=== PATIENT | male | born 1950 | race Caucasian/White ===

== ENCOUNTER → 2016-04-10 | Outpatient (CLI) | payer MEDICARE, BC ==
[2016-04-10 12:30] LABS: ABSOLUTE BASOPHILS # (AUTO) 0.1 10^3/uL (0.0-0.2); ABSOLUTE EOSINOPHILS # (AUTO) 0.3 10^3/uL (0.0-0.6); ABSOLUTE LYMPHOCYTES (AUTO) 1.1 10^3/uL (0.5-4.7); ABSOLUTE MONOCYTES (AUTO) 0.5 10^3/uL (0.1-1.4); ABSOLUTE NEUT (AUTO) 4.6 10^3/uL (1.7-8.2); BASOPHILS % (AUTO) 0.9 % (0-2); EOSINOPHILS % (AUTO) 4.9 % (0-6); HEMATOCRIT 36.4 % (37.9-51.0); HEMOGLOBIN 12.2 g/dL (13.5-17.0); HGB HCT DIFFERENCE 0.2; MEAN CORPUSCULAR HEMOGLOBIN 31.4 pg (27.0-33.4); MEAN CORPUSCULAR HGB CONC 33.5 g/dL (32.0-36.0); MEAN CORPUSCULAR VOLUME 94 fl (80-97); RED BLOOD COUNT 3.89 10^6/uL (4.35-5.55); RED CELL DISTRIBUTION WIDTH 12.9 % (11.5-14.0); SEGMENTED NEUTROPHILS % (AUTO) 69.2 % (42-78); WHITE BLOOD COUNT 6.6 10^3/uL (4.0-10.5)
[2016-04-10 12:53] LABS: ALANINE AMINOTRANSFERASE 33 U/L (21-72); ALKALINE PHOSPHATASE 146 U/L (38-126); ANION GAP 9 (5-19); ASPARTATE AMINO TRANSFERASE 17 U/L (17-59); BILIRUBIN,TOTAL 0.4 mg/dL (0.2-1.3); BLOOD UREA NITROGEN 50 mg/dL (7-20); CALCIUM 8.9 mg/dL (8.4-10.2); CARBON DIOXIDE 22 mmol/L (22-30); CHLORIDE 107 mmol/L (98-107); CHOLESTEROL 198.62 mg/dL (0-200); CREATININE RESULT 3.05 mg/dL (0.52-1.25); Direct HDL 32 mg/dL (>40); GLUCOSE 206 mg/dL (75-110); PHOSPHORUS 4.2 mg/dL (2.5-4.5); POTASSIUM 5.2 mmol/L (3.6-5.0); TOTAL PROTEIN 5.8 g/dL (6.3-8.2); TRIGLYCERIDES 412 mg/dL (<150)
[2016-04-10 13:06] LABS: DIRECT LDL 86 mg/dL (<100)
[2016-04-10 13:08] LABS: ERYTHROCYTE SEDIMENTATION RATE 33 mm/hr (0-20)
== END ==
LOC: OD 10:22
DX: E11.59 Type 2 diabetes mellitus with other circulatory complications (principal); Z79.4 Long term (current) use of insulin; I10 Essential (primary) hypertension; E78.2 Mixed hyperlipidemia; E21.3 Hyperparathyroidism, unspecified; Z12.5 Encounter for screening for malignant neoplasm of prostate; Z79.899 Other long term (current) drug therapy
CPT/HCPCS: 36415; 84100; 84443; 85025; 85652; 80053; 83036; 80061; G0103

== ENCOUNTER → 2016-04-26 | Outpatient (CLI) | payer MEDICARE, BC | LOC: RAD 11:47 | DX: I50.9 Heart failure, unspecified (principal); N50.89 Other specified disorders of the male genital organs; N43.3 Hydrocele, unspecified | CPT/HCPCS: 71020; 76870; 93976 ==

== ENCOUNTER → 2016-05-08 | Outpatient (CLI) | payer MEDICARE, BC | LOC: OD 10:45 | DX: D64.9 Anemia, unspecified (principal); E78.2 Mixed hyperlipidemia | CPT/HCPCS: 36415; 82607; 82728; 82746; 82977; 83540; 83550; 85045 ==

== ENCOUNTER → 2016-06-21 | Outpatient (CLI) | payer MEDICARE, BC ==
[2016-06-21 11:35] LABS: ABSOLUTE BASOPHILS # (AUTO) 0.1 10^3/uL (0.0-0.2); ABSOLUTE EOSINOPHILS # (AUTO) 0.3 10^3/uL (0.0-0.6); ABSOLUTE MONOCYTES (AUTO) 0.6 10^3/uL (0.1-1.4); ABSOLUTE NEUT (AUTO) 6.7 10^3/uL (1.7-8.2); BASOPHILS % (AUTO) 0.6 % (0-2); EOSINOPHILS % (AUTO) 3.9 % (0-6); HEMATOCRIT 36.9 % (37.9-51.0); HEMOGLOBIN 12.4 g/dL (13.5-17.0); HGB HCT DIFFERENCE 0.3; LYMPHOCYTES % (AUTO) 11.4 % (13-45); MEAN CORPUSCULAR HEMOGLOBIN 31.1 pg (27.0-33.4); MEAN CORPUSCULAR HGB CONC 33.6 g/dL (32.0-36.0); MEAN CORPUSCULAR VOLUME 93 fl (80-97); MONOCYTES % (AUTO) 7.3 % (3-13); RED BLOOD COUNT 3.98 10^6/uL (4.35-5.55); RED CELL DISTRIBUTION WIDTH 13.1 % (11.5-14.0); SEGMENTED NEUTROPHILS % (AUTO) 76.8 % (42-78); WHITE BLOOD COUNT 8.7 10^3/uL (4.0-10.5)
[2016-06-21 11:46] LABS: APPEARANCE,URINE CLEAR; BILIRUBIN,URINE NEGATIVE (NEGATIVE); GLUCOSE, URINE >=500 mg/dL (NEGATIVE); KETONES,URINE NEGATIVE (NEGATIVE); LEUKOCYTE ESTERASE,URINE NEGATIVE (NEGATIVE); NITRITE,URINE NEGATIVE (NEGATIVE); PROTEIN,URINE >=500 mg/dL (NEGATIVE); UROBILINOGEN,URINE NEGATIVE mg/dL (<2.0)
[2016-06-21 12:19] LABS: ALANINE AMINOTRANSFERASE 27 U/L (21-72); ALBUMIN 3.7 g/dL (3.5-5.0); ALKALINE PHOSPHATASE 124 U/L (38-126); ANION GAP 13 (5-19); ASPARTATE AMINO TRANSFERASE 26 U/L (17-59); BILIRUBIN,DIRECT 0.4 mg/dL (0.0-0.4); BILIRUBIN,TOTAL 0.5 mg/dL (0.2-1.3); BLOOD UREA NITROGEN 86 mg/dL (7-20); CALCIUM 8.9 mg/dL (8.4-10.2); CARBON DIOXIDE 20 mmol/L (22-30); CHLORIDE 108 mmol/L (98-107); CREATININE RESULT 4.18 mg/dL (0.52-1.25); GLUCOSE 194 mg/dL (75-110); SODIUM 140.6 mmol/L (137-145); TOTAL PROTEIN 6.1 g/dL (6.3-8.2)
[2016-06-21 13:02] LABS: URINE CREATININE 70.2 mg/dL (22-328)
[2016-06-21 13:11] LABS: URINE PROTEIN 588.9 mg/dL (<12)
== END ==
LOC: OD 09:50
PROVIDERS: ATTEND Internal Medicine Nephrology
DX: I12.9 Hypertensive chronic kidney disease with stage 1 through stage 4 chronic kidney disease, or unspecified chronic kidney disease (principal); N18.4 Chronic kidney disease, stage 4 (severe); E87.5 Hyperkalemia; E11.9 Type 2 diabetes mellitus without complications
CPT/HCPCS: 36415; 80053; 81001; 82570; 83735; 83970; 84100; 84156; 84443; 85025

== ENCOUNTER → 2016-06-27 | Outpatient (CLI) | payer MEDICARE, BC ==
[2016-06-27 11:30] LABS: CHOLESTEROL 216.83 mg/dL (0-200); Direct HDL 41 mg/dL (>40); TRIGLYCERIDES 229 mg/dL (<150)
[2016-06-27 11:41] LABS: DIRECT LDL 100 mg/dL (<100)
[2016-06-27 11:46] LABS: VLDL CHOLESTEROL 45.8 mg/dL (10-31)
== END ==
LOC: OD 09:59
PROVIDERS: ATTEND Internal Medicine
DX: E55.9 Vitamin D deficiency, unspecified (principal); R73.01 Impaired fasting glucose; E78.2 Mixed hyperlipidemia
CPT/HCPCS: 36415; 80061; 83036

== ENCOUNTER → 2016-07-16 | Outpatient (CLI) | payer MEDICARE, BC ==
[2016-07-16 10:59] LABS: APPEARANCE,URINE SLIGHTLY-CLOUDY; BILIRUBIN,URINE NEGATIVE (NEGATIVE); GLUCOSE, URINE >=500 mg/dL (NEGATIVE); KETONES,URINE NEGATIVE (NEGATIVE); LEUKOCYTE ESTERASE,URINE NEGATIVE (NEGATIVE); NITRITE,URINE NEGATIVE (NEGATIVE); PROTEIN,URINE >=500 mg/dL (NEGATIVE); URINE SPECIFIC GRAVITY 1.009; UROBILINOGEN,URINE NEGATIVE mg/dL (<2.0)
[2016-07-16 11:06] LABS: HEMATOCRIT 36.5 % (37.9-51.0); HEMOGLOBIN 12.2 g/dL (13.5-17.0); HGB HCT DIFFERENCE 0.1; MEAN CORPUSCULAR HEMOGLOBIN 30.5 pg (27.0-33.4); MEAN CORPUSCULAR HGB CONC 33.3 g/dL (32.0-36.0); MEAN CORPUSCULAR VOLUME 92 fl (80-97); RED BLOOD COUNT 3.98 10^6/uL (4.35-5.55); RED CELL DISTRIBUTION WIDTH 13.1 % (11.5-14.0); WHITE BLOOD COUNT 6.3 10^3/uL (4.0-10.5)
[2016-07-16 11:27] LABS: ANION GAP 9 (5-19); BLOOD UREA NITROGEN 99 mg/dL (7-20); CARBON DIOXIDE 21 mmol/L (22-30); CHLORIDE 107 mmol/L (98-107); CREATININE RESULT 5.04 mg/dL (0.52-1.25); GLUCOSE 181 mg/dL (75-110); PHOSPHORUS 6.4 mg/dL (2.5-4.5); POTASSIUM 4.7 mmol/L (3.6-5.0); SODIUM 137.1 mmol/L (137-145)
[2016-07-16 11:37] LABS: URINE CREATININE 80.1 mg/dL (22-328)
[2016-07-16 11:44] LABS: URINE PROTEIN 544.6 mg/dL (<12)
== END ==
LOC: OD 10:04
PROVIDERS: ATTEND Physician Assistant Medical
DX: E11.22 Type 2 diabetes mellitus with diabetic chronic kidney disease (principal); I12.9 Hypertensive chronic kidney disease with stage 1 through stage 4 chronic kidney disease, or unspecified chronic kidney disease; N18.4 Chronic kidney disease, stage 4 (severe); R60.9 Edema, unspecified
CPT/HCPCS: 36415; 80048; 81001; 82570; 83970; 84100; 84156; 85027

== ENCOUNTER → 2016-08-13 | Outpatient (CLI) | payer MEDICARE, BC ==
[2016-08-13 13:06] LABS: HEMATOCRIT 33.2 % (37.9-51.0); HGB HCT DIFFERENCE -0.2; MEAN CORPUSCULAR HEMOGLOBIN 31.2 pg (27.0-33.4); MEAN CORPUSCULAR HGB CONC 33.1 g/dL (32.0-36.0); MEAN CORPUSCULAR VOLUME 94 fl (80-97); RED BLOOD COUNT 3.53 10^6/uL (4.35-5.55); RED CELL DISTRIBUTION WIDTH 12.9 % (11.5-14.0); WHITE BLOOD COUNT 5.8 10^3/uL (4.0-10.5)
[2016-08-13 13:09] LABS: APPEARANCE,URINE SLIGHTLY-CLOUDY; BILIRUBIN,URINE NEGATIVE (NEGATIVE); GLUCOSE, URINE 150 mg/dL (NEGATIVE); KETONES,URINE NEGATIVE (NEGATIVE); LEUKOCYTE ESTERASE,URINE NEGATIVE (NEGATIVE); NITRITE,URINE NEGATIVE (NEGATIVE); PROTEIN,URINE >=500 mg/dL (NEGATIVE); URINE SPECIFIC GRAVITY 1.011; UROBILINOGEN,URINE NEGATIVE mg/dL (<2.0)
[2016-08-13 13:31] LABS: ANION GAP 12 (5-19); BLOOD UREA NITROGEN 96 mg/dL (7-20); CALCIUM 8.5 mg/dL (8.4-10.2); CARBON DIOXIDE 21 mmol/L (22-30); CHLORIDE 108 mmol/L (98-107); CREATININE RESULT 5.69 mg/dL (0.52-1.25); GLUCOSE 125 mg/dL (75-110); POTASSIUM 5.5 mmol/L (3.6-5.0); SODIUM 141.3 mmol/L (137-145)
[2016-08-13 13:38] LABS: URINE CREATININE 92.6 mg/dL (22-328)
[2016-08-13 13:54] LABS: URINE PROTEIN 581.7 mg/dL (<12)
== END ==
LOC: OD 12:14
PROVIDERS: ATTEND Physician Assistant Medical
DX: E11.22 Type 2 diabetes mellitus with diabetic chronic kidney disease (principal); I12.9 Hypertensive chronic kidney disease with stage 1 through stage 4 chronic kidney disease, or unspecified chronic kidney disease; N18.5 Chronic kidney disease, stage 5; E87.5 Hyperkalemia
CPT/HCPCS: 36415; 80048; 81001; 82570; 84156; 85027

== ENCOUNTER → 2016-08-15 | Outpatient (CLI) | payer MEDICARE, BC | LOC: OD 10:31 | PROVIDERS: ATTEND Physician Assistant Medical | DX: E87.5 Hyperkalemia (principal) | CPT/HCPCS: 36415; 84132 ==

== ENCOUNTER → 2016-10-10 | Outpatient (CLI) | payer MEDICARE, BC ==
[2016-10-10 16:23] LABS: HEMATOCRIT 28.8 % (37.9-51.0); HGB HCT DIFFERENCE 1.2; MEAN CORPUSCULAR HEMOGLOBIN 32.7 pg (27.0-33.4); MEAN CORPUSCULAR HGB CONC 34.5 g/dL (32.0-36.0); MEAN CORPUSCULAR VOLUME 95 fl (80-97); RED BLOOD COUNT 3.04 10^6/uL (4.35-5.55); RED CELL DISTRIBUTION WIDTH 12.7 % (11.5-14.0); WHITE BLOOD COUNT 7.3 10^3/uL (4.0-10.5)
[2016-10-10 16:39] LABS: APPEARANCE,URINE SLIGHTLY-CLOUDY; BILIRUBIN,URINE NEGATIVE (NEGATIVE); GLUCOSE, URINE 150 mg/dL (NEGATIVE); KETONES,URINE NEGATIVE (NEGATIVE); LEUKOCYTE ESTERASE,URINE NEGATIVE (NEGATIVE); NITRITE,URINE NEGATIVE (NEGATIVE); PROTEIN,URINE >=500 mg/dL (NEGATIVE); URINE SPECIFIC GRAVITY 1.009; UROBILINOGEN,URINE NEGATIVE mg/dL (<2.0)
[2016-10-10 16:39] LABS: ANION GAP 10 (5-19); BLOOD UREA NITROGEN 94 mg/dL (7-20); CALCIUM 8.7 mg/dL (8.4-10.2); CARBON DIOXIDE 22 mmol/L (22-30); CHLORIDE 109 mmol/L (98-107); CREATININE RESULT 5.24 mg/dL (0.52-1.25); GLUCOSE 128 mg/dL (75-110); PHOSPHORUS 7.1 mg/dL (2.5-4.5); POTASSIUM 5.8 mmol/L (3.6-5.0); SODIUM 140.9 mmol/L (137-145)
[2016-10-10 16:59] LABS: URINE CREATININE 54.6 mg/dL (22-328)
[2016-10-10 17:08] LABS: URINE PROTEIN 359.8 mg/dL (<12)
== END ==
LOC: OD 15:32
PROVIDERS: ATTEND Physician Assistant Medical
DX: E11.22 Type 2 diabetes mellitus with diabetic chronic kidney disease (principal); I12.9 Hypertensive chronic kidney disease with stage 1 through stage 4 chronic kidney disease, or unspecified chronic kidney disease; N18.5 Chronic kidney disease, stage 5; E87.5 Hyperkalemia
CPT/HCPCS: 36415; 80048; 81001; 82570; 83970; 84100; 84156; 85027

== ENCOUNTER → 2016-10-14 | Outpatient (CLI) | payer MEDICARE, BC | LOC: OD 09:50 | PROVIDERS: ATTEND Physician Assistant Medical | DX: E87.5 Hyperkalemia (principal) | CPT/HCPCS: 36415; 84132 ==

== ENCOUNTER → 2016-12-11 | Outpatient (CLI) | payer MEDICARE, BC ==
[2016-12-11 13:41] LABS: HEMATOCRIT 32.4 % (37.9-51.0); HEMOGLOBIN 11.4 g/dL (13.5-17.0); HGB HCT DIFFERENCE 1.8; MEAN CORPUSCULAR HEMOGLOBIN 32.4 pg (27.0-33.4); MEAN CORPUSCULAR HGB CONC 35.2 g/dL (32.0-36.0); MEAN CORPUSCULAR VOLUME 92 fl (80-97); RED BLOOD COUNT 3.52 10^6/uL (4.35-5.55); RED CELL DISTRIBUTION WIDTH 12.2 % (11.5-14.0); WHITE BLOOD COUNT 7.6 10^3/uL (4.0-10.5)
[2016-12-11 13:46] LABS: APPEARANCE,URINE CLEAR; BILIRUBIN,URINE NEGATIVE (NEGATIVE); GLUCOSE, URINE >=500 mg/dL (NEGATIVE); KETONES,URINE NEGATIVE (NEGATIVE); LEUKOCYTE ESTERASE,URINE NEGATIVE (NEGATIVE); NITRITE,URINE NEGATIVE (NEGATIVE); PROTEIN,URINE 100 mg/dL (NEGATIVE); URINE SPECIFIC GRAVITY 1.008; UROBILINOGEN,URINE NEGATIVE mg/dL (<2.0)
[2016-12-11 14:22] LABS: URINE CREATININE 65.9 mg/dL (22-328)
[2016-12-11 14:22] LABS: ANION GAP 15 (5-19); BLOOD UREA NITROGEN 102 mg/dL (7-20); CALCIUM 9.1 mg/dL (8.4-10.2); CARBON DIOXIDE 26 mmol/L (22-30); CHLORIDE 99 mmol/L (98-107); CREATININE RESULT 4.13 mg/dL (0.52-1.25); GLUCOSE 166 mg/dL (75-110); PHOSPHORUS 5.6 mg/dL (2.5-4.5); POTASSIUM 3.9 mmol/L (3.6-5.0); SODIUM 140.1 mmol/L (137-145)
[2016-12-11 14:33] LABS: URINE PROTEIN 321.5 mg/dL (<12)
== END ==
LOC: OD 12:20
PROVIDERS: ATTEND Physician Assistant Medical
DX: I12.9 Hypertensive chronic kidney disease with stage 1 through stage 4 chronic kidney disease, or unspecified chronic kidney disease (principal); N18.5 Chronic kidney disease, stage 5; E87.5 Hyperkalemia; R80.9 Proteinuria, unspecified
CPT/HCPCS: 36415; 80048; 81001; 82570; 83970; 84100; 84156; 85027

== ENCOUNTER → 2017-02-03 | Outpatient (CLI) | payer MEDICARE, BC ==
[2017-02-03 15:50] LABS: HEMATOCRIT 32.7 % (37.9-51.0); HEMOGLOBIN 11.2 g/dL (13.5-17.0); HGB HCT DIFFERENCE 0.9; MEAN CORPUSCULAR HEMOGLOBIN 31.8 pg (27.0-33.4); MEAN CORPUSCULAR HGB CONC 34.2 g/dL (32.0-36.0); MEAN CORPUSCULAR VOLUME 93 fl (80-97); RED BLOOD COUNT 3.53 10^6/uL (4.35-5.55); RED CELL DISTRIBUTION WIDTH 12.3 % (11.5-14.0); WHITE BLOOD COUNT 10.7 10^3/uL (4.0-10.5)
[2017-02-03 15:57] LABS: APPEARANCE,URINE SLIGHTLY-CLOUDY; BILIRUBIN,URINE NEGATIVE (NEGATIVE); GLUCOSE, URINE 50 mg/dL (NEGATIVE); KETONES,URINE NEGATIVE (NEGATIVE); LEUKOCYTE ESTERASE,URINE NEGATIVE (NEGATIVE); NITRITE,URINE NEGATIVE (NEGATIVE); PROTEIN,URINE >=500 mg/dL (NEGATIVE); UROBILINOGEN,URINE NEGATIVE mg/dL (<2.0)
[2017-02-03 16:07] LABS: ANION GAP 18 (5-19); BLOOD UREA NITROGEN 116 mg/dL (7-20); CALCIUM 9.6 mg/dL (8.4-10.2); CARBON DIOXIDE 24 mmol/L (22-30); CHLORIDE 99 mmol/L (98-107); CREATININE RESULT 5.26 mg/dL (0.52-1.25); GLUCOSE 80 mg/dL (75-110); POTASSIUM 3.5 mmol/L (3.6-5.0); SODIUM 141.4 mmol/L (137-145)
[2017-02-03 16:12] LABS: URINE CREATININE 68.6 mg/dL (22-328)
[2017-02-03 16:22] LABS: URINE PROTEIN 295.8 mg/dL (<12)
== END ==
LOC: OD 14:45
PROVIDERS: ATTEND Physician Assistant Medical
DX: N18.5 Chronic kidney disease, stage 5 (principal); E11.9 Type 2 diabetes mellitus without complications; R80.9 Proteinuria, unspecified; E87.5 Hyperkalemia
CPT/HCPCS: 36415; 80048; 81001; 82570; 84156; 85027

== ENCOUNTER → 2017-03-05 | Outpatient (CLI) | payer MEDICARE, BC ==
[2017-03-05 11:45] LABS: HEMATOCRIT 28.7 % (37.9-51.0); HEMOGLOBIN 9.8 g/dL (13.5-17.0); MEAN CORPUSCULAR HEMOGLOBIN 31.7 pg (27.0-33.4); MEAN CORPUSCULAR HGB CONC 33.9 g/dL (32.0-36.0); MEAN CORPUSCULAR VOLUME 93 fl (80-97); PLATELET COUNT 134 10^3/uL (150-450); RED BLOOD COUNT 3.08 10^6/uL (4.35-5.55); RED CELL DISTRIBUTION WIDTH 13.1 % (11.5-14.0); WHITE BLOOD COUNT 6.3 10^3/uL (4.0-10.5)
[2017-03-05 11:58] LABS: ANION GAP 15 (5-19); BLOOD UREA NITROGEN 102 mg/dL (7-20); CALCIUM 9.3 mg/dL (8.4-10.2); CARBON DIOXIDE 24 mmol/L (22-30); CHLORIDE 102 mmol/L (98-107); GLUCOSE 211 mg/dL (75-110); POTASSIUM 4.2 mmol/L (3.6-5.0); SODIUM 141.1 mmol/L (137-145); URIC ACID 13.1 mg/dL (3.5-8.5)
== END ==
LOC: OD 11:04
PROVIDERS: ATTEND Internal Medicine Nephrology
DX: I12.9 Hypertensive chronic kidney disease with stage 1 through stage 4 chronic kidney disease, or unspecified chronic kidney disease (principal); N18.3 Chronic kidney disease, stage 3 (moderate); E87.5 Hyperkalemia; E11.9 Type 2 diabetes mellitus without complications
CPT/HCPCS: 36415; 80048; 83735; 83970; 84100; 84550; 85027

== ENCOUNTER → 2017-04-03 | Outpatient (CLI) | payer MEDICARE, BC ==
[2017-04-03 12:08] LABS: HEMATOCRIT 29.8 % (37.9-51.0); MEAN CORPUSCULAR HEMOGLOBIN 31.1 pg (27.0-33.4); MEAN CORPUSCULAR HGB CONC 33.5 g/dL (32.0-36.0); MEAN CORPUSCULAR VOLUME 93 fl (80-97); PLATELET COUNT 215 10^3/uL (150-450); RED BLOOD COUNT 3.21 10^6/uL (4.35-5.55); RED CELL DISTRIBUTION WIDTH 13.4 % (11.5-14.0); WHITE BLOOD COUNT 6.3 10^3/uL (4.0-10.5)
[2017-04-03 12:09] LABS: APPEARANCE,URINE CLEAR; BILIRUBIN,URINE NEGATIVE (NEGATIVE); COLOR,URINE YELLOW; GLUCOSE, URINE >=500 mg/dL (NEGATIVE); KETONES,URINE NEGATIVE (NEGATIVE); LEUKOCYTE ESTERASE,URINE NEGATIVE (NEGATIVE); NITRITE,URINE NEGATIVE (NEGATIVE); PROTEIN,URINE 100 mg/dL (NEGATIVE); URINE SPECIFIC GRAVITY 1.006; UROBILINOGEN,URINE NEGATIVE mg/dL (<2.0)
[2017-04-03 12:40] LABS: ALANINE AMINOTRANSFERASE 29 U/L (21-72); ALBUMIN 3.9 g/dL (3.5-5.0); ALKALINE PHOSPHATASE 68 U/L (38-126); ANION GAP 12 (5-19); ASPARTATE AMINO TRANSFERASE 25 U/L (17-59); BILIRUBIN,DIRECT 0.3 mg/dL (0.0-0.4); BILIRUBIN,TOTAL 0.4 mg/dL (0.2-1.3); BLOOD UREA NITROGEN 76 mg/dL (7-20); CALCIUM 9.5 mg/dL (8.4-10.2); CARBON DIOXIDE 23 mmol/L (22-30); CHLORIDE 109 mmol/L (98-107); GLUCOSE 117 mg/dL (75-110); IRON(TIBC) 72.8 ug/dL (49-181); PHOSPHORUS 4.9 mg/dL (2.5-4.5); POTASSIUM 4.5 mmol/L (3.6-5.0); SODIUM 143.7 mmol/L (137-145); URIC ACID 6.9 mg/dL (3.5-8.5)
[2017-04-03 12:46] LABS: URINE CREATININE 41.3 mg/dL (22-328)
[2017-04-03 12:52] LABS: UR PRO/CREAT RATIO RESULT 6.5 mg/mg (0.0-0.2); URINE PROTEIN 269.9 mg/dL (<12)
[2017-04-07 16:39] LABS: A/G RATIO 1.2 (0.7-1.7); ALBUMIN 2 3.4 g/dL (2.9-4.4); ALPHA-2-GLOBULIN 2 0.9 g/dL (0.4-1.0); BETA GLOBULINS 1.2 g/dL (0.7-1.3); GAMMA GLOBULIN 0.5 g/dL (0.4-1.8); GLOBULIN TOTAL 2.8 g/dL (2.2-3.9); MONOCLONAL SPIKE Not Observed g/dL (Not Observed); PROTEIN TOTAL SERUM 6.2 g/dL (6.0-8.5)
== END ==
LOC: OD 11:30
PROVIDERS: ATTEND Internal Medicine Nephrology
DX: I12.9 Hypertensive chronic kidney disease with stage 1 through stage 4 chronic kidney disease, or unspecified chronic kidney disease (principal); N18.2 Chronic kidney disease, stage 2 (mild); E87.5 Hyperkalemia; R80.9 Proteinuria, unspecified; M10.00 Idiopathic gout, unspecified site; D64.9 Anemia, unspecified
CPT/HCPCS: 36415; 80053; 81001; 82570; 82728; 83540; 83550; 84100; 84156; 84165; 84550; 85027

== ENCOUNTER → 2017-05-01 | Outpatient (CLI) | payer MEDICARE, BC ==
[2017-05-01 12:39] LABS: APPEARANCE,URINE SLIGHTLY-CLOUDY; BILIRUBIN,URINE NEGATIVE (NEGATIVE); COLOR,URINE YELLOW; GLUCOSE, URINE 50 mg/dL (NEGATIVE); KETONES,URINE NEGATIVE (NEGATIVE); LEUKOCYTE ESTERASE,URINE NEGATIVE (NEGATIVE); NITRITE,URINE NEGATIVE (NEGATIVE); PROTEIN,URINE 100 mg/dL (NEGATIVE); URINE SPECIFIC GRAVITY 1.009; UROBILINOGEN,URINE NEGATIVE mg/dL (<2.0)
[2017-05-01 12:46] LABS: HEMATOCRIT 30.1 % (37.9-51.0); HEMOGLOBIN 10.2 g/dL (13.5-17.0); MEAN CORPUSCULAR HEMOGLOBIN 31.4 pg (27.0-33.4); MEAN CORPUSCULAR HGB CONC 33.7 g/dL (32.0-36.0); MEAN CORPUSCULAR VOLUME 93 fl (80-97); PLATELET COUNT 141 10^3/uL (150-450); RED BLOOD COUNT 3.23 10^6/uL (4.35-5.55); RED CELL DISTRIBUTION WIDTH 13.9 % (11.5-14.0); WHITE BLOOD COUNT 5.8 10^3/uL (4.0-10.5)
[2017-05-01 13:01] LABS: ANION GAP 14 (5-19); BLOOD UREA NITROGEN 77 mg/dL (7-20); CALCIUM 9.7 mg/dL (8.4-10.2); CARBON DIOXIDE 22 mmol/L (22-30); CHLORIDE 106 mmol/L (98-107); GLUCOSE 67 mg/dL (75-110); POTASSIUM 4.7 mmol/L (3.6-5.0); SODIUM 141.8 mmol/L (137-145)
== END ==
LOC: OD 11:51
PROVIDERS: ATTEND Physician Assistant Medical
DX: I12.0 Hypertensive chronic kidney disease with stage 5 chronic kidney disease or end stage renal disease (principal); N18.5 Chronic kidney disease, stage 5; R80.9 Proteinuria, unspecified; M10.00 Idiopathic gout, unspecified site; E11.9 Type 2 diabetes mellitus without complications
CPT/HCPCS: 36415; 80048; 81001; 83735; 83970; 84100; 85027

== ENCOUNTER → 2017-07-02 | Outpatient (CLI) | payer MEDICARE, BC ==
[2017-07-02 12:01] LABS: HEMATOCRIT 32.9 % (37.9-51.0); HEMOGLOBIN 11.2 g/dL (13.5-17.0); MEAN CORPUSCULAR HEMOGLOBIN 31.8 pg (27.0-33.4); MEAN CORPUSCULAR HGB CONC 34.1 g/dL (32.0-36.0); MEAN CORPUSCULAR VOLUME 93 fl (80-97); PLATELET COUNT 152 10^3/uL (150-450); RED BLOOD COUNT 3.53 10^6/uL (4.35-5.55); RED CELL DISTRIBUTION WIDTH 13.8 % (11.5-14.0); WHITE BLOOD COUNT 7.8 10^3/uL (4.0-10.5)
[2017-07-02 12:19] LABS: ANION GAP 12 (5-19); BLOOD UREA NITROGEN 83 mg/dL (7-20); CALCIUM 9.8 mg/dL (8.4-10.2); CARBON DIOXIDE 22 mmol/L (22-30); CHLORIDE 104 mmol/L (98-107); GLUCOSE 162 mg/dL (75-110); IRON(TIBC) 119.5 ug/dL (49-181); PHOSPHORUS 6.9 mg/dL (2.5-4.5); POTASSIUM 4.6 mmol/L (3.6-5.0); SODIUM 138.2 mmol/L (137-145)
[2017-07-02 13:00] LABS: UR PRO/CREAT RATIO RESULT 5.8 mg/mg (0.0-0.2); URINE CREATININE 34.3 mg/dL (22-328); URINE PROTEIN 197.8 mg/dL (<12)
== END ==
LOC: OD 11:26
PROVIDERS: ATTEND Physician Assistant Medical
DX: N18.5 Chronic kidney disease, stage 5 (principal); E11.9 Type 2 diabetes mellitus without complications; I12.9 Hypertensive chronic kidney disease with stage 1 through stage 4 chronic kidney disease, or unspecified chronic kidney disease; D64.9 Anemia, unspecified; E87.5 Hyperkalemia
CPT/HCPCS: 36415; 80048; 82570; 82728; 83540; 83550; 83970; 84100; 84156; 85027

== ENCOUNTER → 2017-10-03 | Outpatient (CLI) | payer MEDICARE, BC ==
[2017-10-03 15:48] LABS: HEMOGLOBIN 10.2 g/dL (13.5-17.0); MEAN CORPUSCULAR HEMOGLOBIN 32.6 pg (27.0-33.4); MEAN CORPUSCULAR HGB CONC 33.9 g/dL (32.0-36.0); MEAN CORPUSCULAR VOLUME 96 fl (80-97); PLATELET COUNT 158 10^3/uL (150-450); RED BLOOD COUNT 3.12 10^6/uL (4.35-5.55); WHITE BLOOD COUNT 5.7 10^3/uL (4.0-10.5)
[2017-10-03 16:02] LABS: APPEARANCE,URINE CLEAR; BILIRUBIN,URINE NEGATIVE (NEGATIVE); COLOR,URINE YELLOW; GLUCOSE, URINE 150 mg/dL (NEGATIVE); KETONES,URINE NEGATIVE (NEGATIVE); LEUKOCYTE ESTERASE,URINE NEGATIVE (NEGATIVE); NITRITE,URINE NEGATIVE (NEGATIVE); PROTEIN,URINE >=500 mg/dL (NEGATIVE); URINE SPECIFIC GRAVITY 1.012; UROBILINOGEN,URINE NEGATIVE mg/dL (<2.0)
[2017-10-03 16:23] LABS: ANION GAP 15 (5-19); BLOOD UREA NITROGEN 87 mg/dL (7-20); CALCIUM 9.1 mg/dL (8.4-10.2); CARBON DIOXIDE 23 mmol/L (22-30); CHLORIDE 105 mmol/L (98-107); GLUCOSE 103 mg/dL (75-110); POTASSIUM 4.5 mmol/L (3.6-5.0); SODIUM 142.6 mmol/L (137-145)
[2017-10-03 16:40] LABS: URINE CREATININE 74.3 mg/dL (22-328)
[2017-10-03 16:50] LABS: UR PRO/CREAT RATIO RESULT 4.4 mg/mg (0.0-0.2); URINE PROTEIN 327.8 mg/dL (<12)
== END ==
LOC: OD 14:53
PROVIDERS: ATTEND Physician Assistant Medical
DX: I12.9 Hypertensive chronic kidney disease with stage 1 through stage 4 chronic kidney disease, or unspecified chronic kidney disease (principal); N18.5 Chronic kidney disease, stage 5; R60.9 Edema, unspecified; D64.9 Anemia, unspecified; R80.9 Proteinuria, unspecified
CPT/HCPCS: 36415; 80048; 81001; 82570; 84156; 85027

== ENCOUNTER → 2017-12-31 | Outpatient (CLI) | payer MEDICARE, BC ==
[2017-12-31 10:27] LABS: APPEARANCE,URINE CLEAR; BILIRUBIN,URINE NEGATIVE (NEGATIVE); COLOR,URINE YELLOW; GLUCOSE, URINE >=500 mg/dL (NEGATIVE); KETONES,URINE NEGATIVE (NEGATIVE); LEUKOCYTE ESTERASE,URINE NEGATIVE (NEGATIVE); NITRITE,URINE NEGATIVE (NEGATIVE); PROTEIN,URINE 100 mg/dL (NEGATIVE); UROBILINOGEN,URINE NEGATIVE mg/dL (<2.0)
[2017-12-31 10:28] LABS: HEMATOCRIT 30.7 % (37.9-51.0); HEMOGLOBIN 10.4 g/dL (13.5-17.0); MEAN CORPUSCULAR HEMOGLOBIN 32.7 pg (27.0-33.4); MEAN CORPUSCULAR HGB CONC 33.8 g/dL (32.0-36.0); MEAN CORPUSCULAR VOLUME 97 fl (80-97); PLATELET COUNT 118 10^3/uL (150-450); RED BLOOD COUNT 3.17 10^6/uL (4.35-5.55); RED CELL DISTRIBUTION WIDTH 13.6 % (11.5-14.0); WHITE BLOOD COUNT 6.2 10^3/uL (4.0-10.5)
[2017-12-31 10:46] LABS: ANION GAP 15 (5-19); BLOOD UREA NITROGEN 93 mg/dL (7-20); CALCIUM 9.7 mg/dL (8.4-10.2); CARBON DIOXIDE 23 mmol/L (22-30); CHLORIDE 103 mmol/L (98-107); GLUCOSE 200 mg/dL (75-110); PHOSPHORUS 6.5 mg/dL (2.5-4.5); POTASSIUM 4.5 mmol/L (3.6-5.0); SODIUM 140.6 mmol/L (137-145)
== END ==
LOC: OD 09:40
PROVIDERS: ATTEND Physician Assistant Medical
DX: E11.22 Type 2 diabetes mellitus with diabetic chronic kidney disease (principal); N18.5 Chronic kidney disease, stage 5; D64.9 Anemia, unspecified; E87.5 Hyperkalemia
CPT/HCPCS: 36415; 80048; 81001; 82728; 83540; 83550; 83970; 84100; 85027

== ENCOUNTER → 2018-02-02 | Outpatient (CLI) | payer MEDICARE, BC ==
[2018-02-02 14:58] LABS: CALCIUM 10.1 mg/dL (8.4-10.2); GLUCOSE 249 mg/dL (75-110); POTASSIUM 3.5 mmol/L (3.6-5.0)
[2018-02-02 15:03] LABS: ANION GAP 17 (5-19); CARBON DIOXIDE 30 mmol/L (22-30); CHLORIDE 87 mmol/L (98-107); SODIUM 134.4 mmol/L (137-145)
[2018-02-02 15:12] LABS: BLOOD UREA NITROGEN 142 mg/dL (7-20)
== END ==
LOC: OD 13:47
PROVIDERS: ATTEND Physician Assistant Medical
DX: E11.22 Type 2 diabetes mellitus with diabetic chronic kidney disease (principal); N18.5 Chronic kidney disease, stage 5; E87.5 Hyperkalemia
CPT/HCPCS: 36415; 80048; 83970

== ENCOUNTER → 2018-02-18 | Outpatient (CLI) | payer MEDICARE, BC ==
[2018-02-18 14:25] LABS: HEMATOCRIT 32.4 % (37.9-51.0); HEMOGLOBIN 11.1 g/dL (13.5-17.0); MEAN CORPUSCULAR HEMOGLOBIN 32.9 pg (27.0-33.4); MEAN CORPUSCULAR HGB CONC 34.2 g/dL (32.0-36.0); MEAN CORPUSCULAR VOLUME 96 fl (80-97); PLATELET COUNT 136 10^3/uL (150-450); RED BLOOD COUNT 3.36 10^6/uL (4.35-5.55); RED CELL DISTRIBUTION WIDTH 13.4 % (11.5-14.0); WHITE BLOOD COUNT 10.3 10^3/uL (4.0-10.5)
[2018-02-18 14:32] LABS: ANION GAP 12 (5-19); BLOOD UREA NITROGEN 92 mg/dL (7-20); CARBON DIOXIDE 25 mmol/L (22-30); CHLORIDE 101 mmol/L (98-107); GLUCOSE 157 mg/dL (75-110); PHOSPHORUS 5.5 mg/dL (2.5-4.5); POTASSIUM 4.2 mmol/L (3.6-5.0)
== END ==
LOC: OD 12:39
PROVIDERS: ATTEND Physician Assistant Medical
DX: I13.2 Hypertensive heart and chronic kidney disease with heart failure and with stage 5 chronic kidney disease, or end stage renal disease (principal); N18.5 Chronic kidney disease, stage 5; I50.9 Heart failure, unspecified; E11.22 Type 2 diabetes mellitus with diabetic chronic kidney disease
CPT/HCPCS: 36415; 80048; 84100; 85027

== ENCOUNTER → 2018-04-16 | Outpatient (CLI) | payer MEDICARE, BC ==
[2018-04-16 14:28] LABS: HEMOGLOBIN 9.7 g/dL (13.5-17.0); MEAN CORPUSCULAR HEMOGLOBIN 32.9 pg (27.0-33.4); MEAN CORPUSCULAR HGB CONC 33.4 g/dL (32.0-36.0); MEAN CORPUSCULAR VOLUME 99 fl (80-97); PLATELET COUNT 152 10^3/uL (150-450); RED BLOOD COUNT 2.94 10^6/uL (4.35-5.55); RED CELL DISTRIBUTION WIDTH 15.6 % (11.5-14.0)
[2018-04-16 14:33] LABS: APPEARANCE,URINE SLIGHTLY-CLOUDY; BILIRUBIN,URINE NEGATIVE (NEGATIVE); COLOR,URINE YELLOW; GLUCOSE, URINE >=500 mg/dL (NEGATIVE); KETONES,URINE NEGATIVE (NEGATIVE); LEUKOCYTE ESTERASE,URINE NEGATIVE (NEGATIVE); NITRITE,URINE NEGATIVE (NEGATIVE); PROTEIN,URINE 30 mg/dL (NEGATIVE); URINE SPECIFIC GRAVITY 1.008; UROBILINOGEN,URINE NEGATIVE mg/dL (<2.0)
[2018-04-16 14:48] LABS: ANION GAP 13 (5-19); BLOOD UREA NITROGEN 105 mg/dL (7-20); CALCIUM 9.1 mg/dL (8.4-10.2); CARBON DIOXIDE 25 mmol/L (22-30); CHLORIDE 101 mmol/L (98-107); GLUCOSE 262 mg/dL (75-110); POTASSIUM 4.3 mmol/L (3.6-5.0); SODIUM 138.5 mmol/L (137-145)
[2018-04-16 14:50] LABS: UR PRO/CREAT RATIO RESULT 1.6 mg/mg (0.0-0.2); URINE PROTEIN 56.5 mg/dL (<12)
== END ==
LOC: OD 13:50
PROVIDERS: ATTEND Physician Assistant Medical
DX: I12.0 Hypertensive chronic kidney disease with stage 5 chronic kidney disease or end stage renal disease (principal); N18.5 Chronic kidney disease, stage 5; E11.22 Type 2 diabetes mellitus with diabetic chronic kidney disease; R60.9 Edema, unspecified; D64.9 Anemia, unspecified
CPT/HCPCS: 36415; 80048; 81001; 82570; 83970; 84156; 85027

== ENCOUNTER → 2018-05-06 | Outpatient (CLI) | payer MEDICARE, BC ==
[2018-05-06 16:20] LABS: ANION GAP 9 (5-19); BLOOD UREA NITROGEN 94 mg/dL (7-20); CALCIUM 9.8 mg/dL (8.4-10.2); CARBON DIOXIDE 31 mmol/L (22-30); CHLORIDE 96 mmol/L (98-107); GLUCOSE 193 mg/dL (75-110); POTASSIUM 3.9 mmol/L (3.6-5.0); SODIUM 136.1 mmol/L (137-145)
== END ==
LOC: OD 13:59
PROVIDERS: ATTEND Physician Assistant Medical
DX: I12.9 Hypertensive chronic kidney disease with stage 1 through stage 4 chronic kidney disease, or unspecified chronic kidney disease (principal); N18.5 Chronic kidney disease, stage 5
CPT/HCPCS: 36415; 80048

== ENCOUNTER → 2018-08-05 | Outpatient (CLI) | payer MEDICARE, BC ==
[2018-08-05 16:34] LABS: PROTHROMBIN TIME 72.3 SEC (11.4-15.4)
[2018-08-05 16:35] LABS: INTERNATIONAL RATION (INR) 8.26
== END ==
LOC: OD 15:39
PROVIDERS: ATTEND Internal Medicine Cardiovascular Disease
DX: I48.0 Paroxysmal atrial fibrillation (principal); I25.5 Ischemic cardiomyopathy
CPT/HCPCS: 36415; 85610

== ENCOUNTER → 2018-08-06 | Outpatient (CLI) | payer MEDICARE, BC ==
--- NOTE | 2018-08-07 08:17 | RADIOLOGY REPORT (SQ) ---
EXAM DESCRIPTION: CHEST 2 VIEWS COMPLETED DATE/TIME: 08/06/2018 5:29 pm REASON FOR STUDY: R05 COUGH COMPARISON: 04/26/2016 EXAM PARAMETERS: NUMBER OF VIEWS: two views TECHNIQUE: Digital Frontal and Lateral radiographic views of the chest acquired. RADIATION DOSE: NA LIMITATIONS: none FINDINGS: LUNGS AND PLEURA: There are small effusions. Dialysis catheter has been placed since prio r study. No consolidation. MEDIASTINUM AND HILAR STRUCTURES: No masses or contour abnormalities. HEART AND VASCULAR STRUCTURES: Heart size is stable. There is mild central vascular congestion. BONES: No acute findings. HARDWARE: None in the chest. OTHER: No other significant finding. IMPRESSION: Small effusions and mild vascular congestion new from prior study. Dialysis catheter navarro s been placed since prior study. TECHNICAL DOCUMENTATION: JOB ID: [id number] [employer]- All Rights Reserved Reading location - IP/workstation name: [email or web address]
== END ==
LOC: RAD 17:11
PROVIDERS: ATTEND Family Medicine
DX: J90 Pleural effusion, not elsewhere classified (principal); R05 Cough
CPT/HCPCS: 71046

== ENCOUNTER → 2018-08-10 | Outpatient (CLI) | payer MEDICARE, BC ==
[2018-08-10 14:33] LABS: PROTHROMBIN TIME 28.4 SEC (11.4-15.4)
[2018-08-10 14:36] LABS: INTERNATIONAL RATION (INR) 2.53
== END ==
LOC: OD 13:42
PROVIDERS: ATTEND Internal Medicine Cardiovascular Disease
DX: I48.0 Paroxysmal atrial fibrillation (principal); I25.5 Ischemic cardiomyopathy
CPT/HCPCS: 36415; 85610

== ENCOUNTER → 2018-08-28 | Outpatient (CLI) | payer MEDICARE, BC | LOC: OD 12:36 | PROVIDERS: ATTEND Internal Medicine Cardiovascular Disease | DX: I48.0 Paroxysmal atrial fibrillation (principal); I25.5 Ischemic cardiomyopathy | CPT/HCPCS: 36415; 85610 ==

== ENCOUNTER → 2018-09-29 | Outpatient (CLI) | payer MEDICARE, BC ==
[2018-09-29 17:31] LABS: INTERNATIONAL RATION (INR) 2.56
== END ==
LOC: OD 16:51
PROVIDERS: ATTEND Internal Medicine Cardiovascular Disease
DX: I48.0 Paroxysmal atrial fibrillation (principal)
CPT/HCPCS: 36415; 85610

== ENCOUNTER → 2018-10-21 | Outpatient (CLI) | payer MEDICARE, BC | LOC: OD 08:48 | PROVIDERS: ATTEND Internal Medicine Nephrology | DX: I95.9 Hypotension, unspecified (principal) | CPT/HCPCS: 36415; 82533 ==

== ENCOUNTER 2019-06-15 16:08 | Emergency (ER) | payer MEDICARE, BC ==
[2019-06-15] MEDS ORDERED: ACETAMINOPHEN 325 MG TABLET ONE (16:51)
[2019-06-15] MEDS ORDERED: ACETAMINOPHEN 325 MG TABLET PO ONE (17:05)
[2019-06-15] MEDS ORDERED: NORMAL SALINE 500 ML IV PRN (17:05)
--- NOTE | 2019-06-15 17:17 | ER Document Report ---
ED Fever - General TRAVEL OUTSIDE OF THE [place]. IN LAST 30 DAYS: No <TIARA AGUILAR - Last Filed: 06/15/19 19:37> <ALLI SEGURA - Last Filed: 06/15/19 22:14> - General Chief Complaint: Fever Stated Complaint: BODY WEAKNESS Time Seen by Provider: 06/15/19 16:16 Primary Care Provider: TERESA LOMBARDI MD [NO LOCAL MD] - Follow up as needed Notes: Patient is a 68-year-old male who presents the emergency department with a chief complaint of fever, weakness, generalized malaise, and right foot pain. Patient had an amputation of his right toes at the beginning of this month. Patient has a wound VAC to the area. Patient went to dialysis today and states that he was not feeling well after dialysis. Here in the emergency department he has a tem perature of 100.3. Patient denies any altered mental status. Patient states that he has not been feeling well over the past couple of days. He reports that he was given a dose of antibiotics that "started with a C," in dialysis. He was transported from dialysis here to the emergency department by POV. (TIARA AGUILAR) - Related Data Allergies/Adverse Reactions: No Known Allergies Allergy (Verified 06/15/19 16:54) Past Medical History - General Information source: Patient - Social History Smoking Status: Never Smoker Family History: Reviewed & Not Pertinent Patient has suicidal ideation: No Patient has homicidal ideation: No - Past Medical History Cardiac Medical History: Reports: Hx Heart Attack Endocrine Medical History: Reports: Hx Diabetes Mellitus Type 2 Renal/ Medical History: Reports: Hx End Stage Renal Disease Past Surgical History: Reports: Hx Cardiac Surgery - pace defib, Hx Orthopedic Surgery - left toe right toe amputation, Hx Tonsillectomy <TIARA AGUILAR - Last Filed: 06/15/19 19:37> Review of Systems <TIARA AGUILAR - Last Filed: 06/15/19 19:37> - Review of Systems Notes: REVIEW OF SYSTEMS: CONSTITUTIONAL : Denies recent unintentional weight loss. See HPI. EENT: Denies eye, ear, throat, or mouth pain, discharge, or symptoms. Denies nasal or sinus congestion. CARDIOVASCULAR: Denies chest pain. RESPIRATORY: Denies shortness of breath, cough, congestion, difficulty breathi ng, or wheezing. GASTROINTESTINAL: Denies nausea, vomiting, and diarrhea. Denies abdominal pain. Denies constipation. GENITOURINARY: Denies difficulty urinating, burning, blood in urine, urgency or frequency. MUSCULOSKELETAL: See HPI. SKIN: Denies rash, itchiness, or lesions HEMATOLOGIC : Denies easy bruising or bleeding. LYMPHATIC: Denies swollen, painful, enlarged glands. NEUROLOGICAL: Denies no numbness or tingling denies weakness. Denies headache. Denies altered mental status. Denies alteration in speech. PSYCHIATRIC: Denies stress, anxiety, alteration in sleep patterns, or depression. All other systems reviewed and negative. (TESSA AGUILARIE Cesar) Physical Exam <TIARA AGUILAR - Last Filed: 06/15/19 19:37> - Vital signs Vitals: Temp Pulse BP Pulse Ox 100.3 F 122 H 152/77 H 92 06/15/19 16:44 06/15/19 16:44 06/15/19 16:44 06/15/19 16:44 - Notes Notes: PHYSICAL EXAMINATION: GENERAL: Appears generally not feeling well, no acute distress. HEAD: Normocephalic, atraumatic. EYES: PERRL, conjunctiva normal, all extraocular movements intact, sclera nonicteric ENT: Moist mucous membranes. NECK: Supple, no noticeable swelling, redness, rash. Normal range of motion. LUNGS: Equal breath sounds bilaterally and clear to auscultation. No wheezes rales or rhonchi. CARDIOVASCULAR: S1-S2, regular rate, regular rhythm. Radial pulses 2+, normal. ABDOMEN: Normoactive bowel sounds. Soft, nontender, no guarding, no rebound tenderness, and no masses palpated. EXTREMITIES: Very tender right foot at amputation site. NEUROLOGICAL: Moves all extremities upon command. Strength 5/5 in all extr emities. PSYCH: Normal mood, normal affect. SKIN: Warm, dry. No rash, lesions, ulcerations noted. Normal skin turgor. (TIARA AGUILAR) Course - Laboratory Result Diagrams: 06/15/19 16:33 06/15/19 16:33 <TIARA AGUILAR - Last Filed: 06/15/19 19:37> - Laboratory Result Diagrams: 06/15/19 16:33 06/15/19 16:33 <ALLI SEGURA - Last Filed: 06/15/19 22:14> - Re-evaluation Re-evalutation: 06/15/19 18:16 I called the transfer center at [facility]. Due to the COVID 19 pandemic, they are trying to limit transportation between [facility]. 06/15/19 18:25 I spoke with the transfer center and due to the patient having a fever, they would like to have the patient tested for COVID 19 and managed here in the hospital. I was then told that we do not have any dialysis beds here in the hospital. 06/15/19 19:00 Dr. Segura, my attending has been in contact with [facility]. 06/15/19 19:40 Patient has been accepted for transfer to [facility]. (TIARA AGUILAR) 06/15/19 22:14 ++stble FOR TRANSFER 10-15 PM (ALLI SEGURA) - Vital Signs Vital signs: Temp Pulse Resp BP Pulse Ox 98.7 F 122 H 21 H 143/89 H 96 06/15/19 20:08 06/15/19 16:44 06/15/19 22:00 06/15/19 22:00 06/15/19 22:00 - Laboratory Laboratory results interpreted by me: 06/15/19 06/15/19 16:33 16:33 WBC 27.2 H RBC 3.02 L Hgb 10.1 L Hct 30.5 L MCV 101 H RDW 15.8 H Seg Neuts % (Manual) 88 H Lymphocytes % (Manual) 3 L Abs Neuts (Manual) 24.8 H Sodium 132.6 L Creatinine 1.90 H Est GFR ( Amer) 43 L Est GFR (MDRD) Non-Af 35 L Glucose 153 H Alkaline Phosphatase 133 H Total Protein 5.7 L Albumin 3.0 L Discharge <TIARA AGUILAR - Last Filed: 06/15/19 19:37> <ALLI SEGURA - Last Filed: 06/15/19 22:14> - Discharge Clinical Impression: Foot osteomyelitis, right Qualifiers: Osteomyelitis type: subacute Qualified Code(s): M86.271 - Subacute osteomyelitis, right ankle and foot Sepsis Qualifiers: Sepsis type: sepsis due to unspecified organism Condition: Critical Disposition: [facility] Referrals: TERESA LOMBARDI MD [NO LOCAL MD] - Follow up as needed
[2019-06-15 17:41] LABS: ALKALINE PHOSPHATASE 133 U/L (38-126); ANION GAP 8 (5-19); ASPARTATE AMINO TRANSFERASE 24 U/L (17-59); BILIRUBIN,DIRECT 0.2 mg/dL (0.0-0.4); BILIRUBIN,TOTAL 0.8 mg/dL (0.2-1.3); BLOOD UREA NITROGEN 16 mg/dL (7-20); CALCIUM 8.8 mg/dL (8.4-10.2); CARBON DIOXIDE 25 mmol/L (22-30); CHLORIDE 100 mmol/L (98-107); GLUCOSE 153 mg/dL (75-110); HEMATOCRIT 30.5 % (37.9-51.0); HEMOGLOBIN 10.1 g/dL (13.5-17.0); MEAN CORPUSCULAR HEMOGLOBIN 33.3 pg (27.0-33.4); MEAN CORPUSCULAR VOLUME 101 fl (80-97); PLATELET COUNT 158 10^3/uL (150-450); POTASSIUM 3.8 mmol/L (3.6-5.0); RED BLOOD COUNT 3.02 10^6/uL (4.35-5.55); RED CELL DISTRIBUTION WIDTH 15.8 % (11.5-14.0); TOTAL PROTEIN 5.7 g/dL (6.3-8.2); WHITE BLOOD COUNT 27.2 10^3/uL (4.0-10.5)
--- NOTE | 2019-06-15 17:50 | RADIOLOGY REPORT (SQ) ---
EXAM DESCRIPTION: CHEST SINGLE VIEW IMAGES COMPLETED DATE/TIME: 06/15/2019 5:36 pm REASON FOR STUDY: fever; weakness COMPARISON: 08/06/2018 EXAM PARAMETERS: NUMBER OF VIEWS: One view. TECHNIQUE: Single frontal radiographic view of the chest acquired. RADIATION DOSE: NA LIMITATIONS: None. FINDINGS: LUNGS AND PLEURA: Low lung volumes limits the examination. Linear parenchymal density at the left lung base may represent atelectasis. No acute pulmonary consolidation. MEDIASTINUM AND HILAR STRUCTURES: No masses. Contour normal. HEART AND VASCULAR STRUCTURES: Borderline cardiomegaly. Normal vasculature. BONES: No acute findings. HARDWARE: Right-sided dialysis catheter, stable finding. Interval placement of left-sided cardiac p acemaker/defibrillator. OTHER: No other significant finding. IMPRESSION: 1. Low lung volumes limits examination. Linear area of atelectasis left lung base. 2. Interval placement of left-sided cardiac pacemaker/ defibrillator since the previous examination. TECHNICAL DOCUMENTATION: JOB ID: [id number] 2010 [employer]- All Rights Reserved Reading location - IP/workstation name: [email or web address]
--- NOTE | 2019-06-15 17:55 | RADIOLOGY REPORT (SQ) ---
EXAM DESCRIPTION: FOOT RIGHT COMPLETE IMAGES COMPLETED DATE/TIME: 06/15/2019 5:36 pm REASON FOR STUDY: foot pain; eval osteomylitis COMPARISON: None. NUMBER OF VIEWS: Three views. TECHNIQUE: AP, lateral and oblique radiographic images acquired of the right foot. LIMITATIONS: None. FINDINGS: MINERALIZATION: Osteopenia. BONES: Prior amputation of the second toe down to the level of the mid-distal phalanx. There is the suggestion of fracture and osteomyelitis at the base of the proximal phalanx. Prior amputation of the great toe down to the proximal- mid shaft. Prior amputation of the third and fourth toes. . JOINTS: No effusions. SOFT TISSUES: Soft tissue swelling. Soft tissue vascular calcifications. OTHER: No other significant finding. IMPRESSION: 1. Prior amputation of the second toe down to the level of the mid-distal phalanx. The re is the suggestion of fracture and osteomyelitis at the base of the proximal phalanx. 2. Prior amputation of the great toe down to the mid proximal -mid shaft. The third and fourth toes have been amputated. 3. Soft tissue swelling. TECHNICAL DOCUMENTATION: JOB ID: [id number] 2010 [employer]- All Rights Reserved Reading location - IP/workstation name: [email or web address]
[2019-06-15 17:58] LABS: ABSOLUTE LYMPHOCYTES# (MANUAL) 1.1 10^3/uL (0.5-4.7); ABSOLUTE MONOCYTES # (MANUAL) 1.4 10^3/uL (0.1-1.4); BAND NEUTROPHILS % (MANUAL) 3 % (3-5); BASOPHILS % (MANUAL) 0 % (0-2); EOSINOPHILS % (MANUAL) 0 % (0-6); LYMPHOCYTES % (MANUAL) 3 % (13-45); MONOCYTES % (MANUAL) 5 % (3-13); SEGMENTED NEUTROPHILS % (MAN) 88 % (42-78); TOTAL CELLS COUNTED 100
[2019-06-15 17:59] LABS: ANISOCYTOSIS SLIGHT; PLATELET COMMENT ADEQUATE
--- NOTE | 2019-06-15 18:12 | ER Document Report ---
ED General - General Chief Complaint: Fever Stated Complaint: BODY WEAKNESS Time Seen by Provider: 06/15/19 16:16 Primary Care Provider: TERESA LOMBARDI MD [NO LOCAL MD] - Follow up as needed Notes: Patient is a 68-year-old male who presents emergency department with a chief complaint of right foot pain, malaise, fever, and generally not feeling well. Patient states that his symptoms started a couple of days ago, but today after dialysis, he felt worse. Patient had his toes amputated earlier this month at [facility]. Patient states that he was supposed to have his follow-up visit, but due to COVID-19, the patient was not able to follow-up. TRAVEL OUTSIDE OF THE [place] IN LAST 30 DAYS: No - Related Data Allergies/Adverse Reactions: No Known Allergies Allergy (Verified 06/15/19 16:54) Past Medical History - Social History Smoking Status: Never Smoker Patient has suicidal ideation: No Patient has homicidal ideation: No - Past Medical History Cardiac Medical History: Reports: Hx Heart Attack Endocrine Medical History: Reports: Hx Diabetes Mellitus Type 2 Renal/ Medical History: Reports: Hx End Stage Renal Disease Past Surgical History: Reports: Hx Cardiac Surgery - pace defib, Hx Orthopedic Surgery - left toe right toe amputation, Hx Tonsillectomy Physical Exam - Vital signs Vitals: Temp Pulse BP Pulse Ox 100.3 F 122 H 152/77 H 92 06/15/19 16:44 06/15/19 16:44 06/15/19 16:44 06/15/19 16:44 Course - Vital Signs Vital signs: Temp Pulse Resp BP Pulse Ox 99.4 F 122 H 22 H 136/80 H 90 L 06/15/19 18:06 06/15/19 16:44 06/15/19 17:01 06/15/19 17:01 06/15/19 17:01 - Laboratory Result Diagrams: 06/15/19 16:33 06/15/19 16:33 Laboratory results interpreted by me: 06/15/19 06/15/19 16:33 16:33 WBC 27.2 H RBC 3.02 L Hgb 10.1 L Hct 30.5 L MCV 101 H RDW 15.8 H Seg Neuts % (Manual) 88 H Lymphocytes % (Manual) 3 L Abs Neuts (Manual) 24.8 H Sodium 132.6 L Creatinine 1.90 H Est GFR ( Amer) 43 L Est GFR (MDRD) Non-Af 35 L Glucose 153 H Alkaline Phosphatase 133 H Total Protein 5.7 L Albumin 3.0 L Discharge - Discharge Referrals: TERESA LOMBARDI MD [NO LOCAL MD] - Follow up as needed
[2019-06-15] MEDS ORDERED: VANCOMYCIN HCL INJ 1000 MG VIAL IV ONE (18:24)
--- NOTE | 2019-06-15 18:59 | ER Document Report ---
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 Getting worse throughout the day. Temperature was only 100.3 at home but he feels like it is worse. He got a dose of a certain antibiotic beginning with a "C" at dialysis. He presents with tachycardia and fever and gross purulent drainage. Apparently he has been hospitalized at [facility] in February for the same thing and they wanted to do a full amputation, he was seen by vascular surgery Dr. Griffiths. He refused this and was subsequently admitted to [facility] and had the above procedure. He has a mild cough. He has no shortness of breath. TRAVEL OUTSIDE OF THE [place] IN LAST 30 DAYS: No - Related Data Allergies/Adverse Reactions: No Known Allergies Allergy (Verified 06/15/19 16:54) Past Medical History - Social History Smoking Status: Never Smoker Family History: None Patient has suicidal ideation: No Patient has homicidal ideation: No - Past Medical History Cardiac Medical History: Reports: Hx Heart Attack Endocrine Medical History: Reports: Hx Diabetes Mellitus Type 2 Renal/ Medical History: Reports: Hx End Stage Renal Disease Past Surgical History: Reports: Hx Cardiac Surgery - pace defib, Hx Orthopedic Surgery - left toe right toe amputation, Hx Tonsillectomy Review of Systems - Review of Systems Notes: REVIEW OF SYSTEMS GEN: Fever weakness ENT: Denies sore throat, nasal discharge, ear pain EYES: Denies blurry vision, eye pain, discharge CV: Denies chest pain, palpitations, edema RESP: Mild cough g GI: Denies abdominal pain, nausea, vomiting, diarrhea MSK: Denies joint pain/swelling, edema, SKIN: Foot pain LYMPH: Denies swollen glands/lymph nodes NEURO: Denies headache, focal weakness or numbness, dizziness PSYCH: Denies depression, suicidal or homicidal ideation PHYSICAL EXAMINATION General: No acute distress, well-nourished Head: Atraumatic, normocephalic ENT: Mouth normal, oropharynx moist, no exudates or tonsillar enlargement Eyes: Conjunctiva normal, pupils equal, lids normal Neck: No JVD, supple, no guarding CVS: Normal rate, regular rhythm, no murmurs Resp: No resp distress, equal and normal breath sounds bilaterally GI: Nondistended, soft, no tenderness to palpation, no rebound or guarding Ext: There is purulence emanating from around the wound VAC on the right foot with surrounding erythema and induration, tender to palpation. Back: No CVA or midline TTP Skin: No rash, warm Lymphatic: No lymphadeopathy noted Neuro: Awake, alert. Face symmetric. GCS 15. Physical Exam - Vital signs Vitals: Temp Pulse BP Pulse Ox 100.3 F 122 H 152/77 H 92 06/15/19 16:44 06/15/19 16:44 06/15/19 16:44 06/15/19 16:44 Course - Re-evaluation Re-evalutation: 06/15/19 18:59 Immunocompromise dialysis patient with diabetes and circulatory impairment presents with postoperative wound infection after what seems to be getting adequate procedure to remove necrotic and mal perforans tissue in the right foot. He is clearly septic. He had received an unknown antibiotic but likely a cephalosporin at dialysis. Will hold on full fluid bolus, will culture, including wound check ESR CRP and x-ray for osteomyelitis, and dose of vancomycin. Patient initially seen by midlevel provider, I was added to the case subsequently. Recommended increasing antibiotic coverage. Will hold fluid bolus. White count is 27 with a left shift, and there are multiple distal phalanges with osteomyelitis suggesting the need for a transmetatarsal or higher amputation. There are no dialysis beds here at [place] so the patient cannot be admitted here. I have spoken with [facility] to speak with her vascular surgery team and transfer the patient. We did briefly consider coronavirus infection although the patient has a very obvious reason for his sepsis. He is mildly hypoxic. Chest x-ray shows some? Atelectasis. He has been cultured and we will treat to cover pneumonia. At this point I have not sent a COVID test. Please note that clinical decision making for this patient was made during the 2019 pandemic of novel coronavirus which caused a significant strain on the healthcare system including at this particular facility. Criteria for admission, discharge and level of care decisions as well as treatment decisions have necessarily changed. 06/15/19 19:01 - Vital Signs Vital signs: Temp Pulse Resp BP Pulse Ox 99.4 F 122 H 19 153/72 H 96 06/15/19 18:06 06/15/19 16:44 06/15/19 19:01 06/15/19 19:01 06/15/19 19:01 06/15/19 20:05 Patient reassessed 7:30 PM. Heart rate is come down. Had a long discussion with patient regarding his desire not to go to [facility] but that there is no other choice. He elected to be transferred in the end. I have covered him with Flagyl as well for anaerobic coverage. He was discussed with nurse practitioner Norberto who works with Dr. Griffiths at [facility] vascular surgery who agrees with the plan and will consult, and then was discussed with medical housestaff h ospitalist service for admission. Accepted under Dr. Horvath. - Laboratory Result Diagrams: 06/15/19 16:33 06/15/19 16:33 Laboratory results interpreted by me: 06/15/19 06/15/19 16:33 16:33 WBC 27.2 H RBC 3.02 L Hgb 10.1 L Hct 30.5 L MCV 101 H RDW 15.8 H Seg Neuts % (Manual) 88 H Lymphocytes % (Manual) 3 L Abs Neuts (Manual) 24.8 H Sodium 132.6 L Creatinine 1.90 H Est GFR ( Amer) 43 L Est GFR (MDRD) Non-Af 35 L Glucose 153 H Alkaline Phosphatase 133 H Total Protein 5.7 L Albumin 3.0 L - Diagnostic Test Radiology reviewed: Image reviewed, Reports reviewed Critical Care Note - Critical Care Note Total time excluding time spent on procedures (mins): 32 Comments: The above patient is critically ill. Not including procedures, but including direct re-evaluations, speaking with patient and/or consultants, interpreting results, and documenting, I spent the total amount of minute listed listed above on critical care time Discharge - Discharge Clinical Impression: Foot osteomyelitis, right Qualifiers: Osteomyelitis type: subacute Qualified Code(s): M86.271 - Subacute osteomyelitis, right ankle and foot Sepsis Qualifiers: Sepsis type: sepsis due to unspecified organism Condition: Critical Disposition: [facility] Referrals: TERESA LOMBARDI MD [NO LOCAL MD] - Follow up as needed
[2019-06-15] MEDS ORDERED: METRONIDAZOLE RTU 500 MG/NS 100 ML IV ONE (19:24)
[2019-06-15 23:07] VITALS: BP 144/87
--- NOTE | 2019-06-16 07:24 | EKG REPORT ---
SEVERITY:- ABNORMAL ECG - ATRIAL-SENSED VENTRICULAR-PACED RHYTHM : Confirmed by: [place] 16-Jun-2019 07:24:16
== END 2019-06-15 23:07 | disposition short-term general hospital (02) ==
LOC: ER 16:08
DX: M86.271 Subacute osteomyelitis, right ankle and foot (principal); A41.9 Sepsis, unspecified organism; R50.9 Fever, unspecified; R53.1 Weakness; R00.0 Tachycardia, unspecified; R05 Cough; Z89.421 Acquired absence of other right toe(s); Z98.890 Other specified postprocedural states; I25.2 Old myocardial infarction; E11.22 Type 2 diabetes mellitus with diabetic chronic kidney disease; N18.6 End stage renal disease; Z99.2 Dependence on renal dialysis
CPT/HCPCS: 93005; 99291; 36415; 87040; 83605; 85025; 87077; 80053; 87150 ×26; 71045; 73630; 93010; A9270; J3490; J7040; J3370

== ENCOUNTER 2020-01-03 21:23 | Emergency (ER) | payer MEDICARE, BC ==
--- NOTE | 2020-01-03 21:46 | ER Document Report ---
ED General - General Chief Complaint: Finger Injury Stated Complaint: AVULSION/RIGHT PINKY Time Seen by Provider: 01/03/20 21:45 Primary Care Provider: TERESA LOMBARDI MD [NO LOCAL MD] - Follow up as needed TRAVEL OUTSIDE OF THE [place] IN LAST 30 DAYS: No - HPI Notes: 69-year-old male presents with injury to his right pinky finger. Patient states that he was using a mandolin this morning to chop potatoes while he was making breakfast. He accidentally cut the tip of his pinky finger. He states that there is a very thin piece of skin which he did not save for bring to the emergency department. He reports pain to the area. He is here because he has not gotten the bleeding to stop. He is on warfarin. He states that his dose was recently increased due to subtherapeutic, he has not had it rechecked since increasing the dose - Related Data Allergies/Adverse Reactions: No Known Allergies Allergy (Verified 06/15/19 16:54) Past Medical History - General Information source: Patient - Social History Smoking Status: Unknown if Ever Smoked Family History: Reviewed & Not Pertinent - Past Medical History Cardiac Medical History: Reports: Hx Heart Attack Endocrine Medical History: Reports: Hx Diabetes Mellitus Type 2 Renal/ Medical History: Reports: Hx End Stage Renal Disease Past Surgical History: Reports: Hx Cardiac Surgery - pace defib, Hx Orthopedic Surgery - left toe right toe amputation, Hx Tonsillectomy Review of Systems - Review of Systems Constitutional: No symptoms reported EENT: No symptoms reported Cardiovascular: No symptoms reported Respiratory: No symptoms reported Gastrointestinal: No symptoms reported Genitourinary: No symptoms reported Male Genitourinary: No symptoms reported Musculoskeletal: No symptoms reported Skin: See HPI Hematologic/Lymphatic: No symptoms reported Neurological/Psychological: denies: Weakness, Numbness Physical Exam - Vital signs Vitals: Temp 56 F L 01/03/20 21:23 - General General appearance: Appears well, Alert - HEENT Head: Normocephalic, Atraumatic Extraocular movements intact: Yes Pupils: PERRL - Respiratory Respiratory status: No respiratory distress - Cardiovascular Pulses: Normal: Radial Normal capillary refill: Yes - Extremities Notes: Approximately 1 cm avulsion to the pad of the right fifth finger, venous oozing present - Neurological Neuro grossly intact: Yes Cognition: Normal Orientation: AAOx4 Notes: Motor and sensation intact to right hand - Psychological Associated symptoms: Normal affect - Skin Skin Temperature: Warm Course - Re-evaluation Re-evalutation: 6-year-old male sustained small avulsion to pad of right fifth finger, has been bleeding since 10 AM. He is on warfarin, will check INR. Motor and sensation is intact to hand. There is venous oozing. Will start with topical TXA and reassess 01/04/20 00:20 TXA unfortunately did not stop bleeding, LET has been applied, have ordered silver nitrate sticks as well. Patient requesting pain medication, ordered his usual dose of oxycodone 01/04/20 01:20 Still with some mild oozing after LET, hemostasis achieved with application of silver nitrate. His finger was then wrapped with combination of Dermabond and Steri-Strips 01/04/20 01:27 Wound care was discussed with patient, he was advised of close follow-up with his PCP given his history of diabetes. Return precautions given, stable at time of discharge. - Vital Signs Vital signs: Temp Pulse Resp BP Pulse Ox 97.4 F 78 20 152/94 H 99 01/03/20 22:07 01/03/20 22:07 01/03/20 22:07 01/03/20 22:07 01/03/20 22:07 - Laboratory Laboratory results interpreted by me: 01/03/20 22:15 PT 27.6 H Discharge - Discharge Clinical Impression: Therapeutic effect of drug Finger avulsion Qualifiers: Encounter type: initial encounter Qualified Code(s): S61.209A - Unspecified open wound of unspecified finger without damage to nail, initial encounter Disposition: HOME, SELF-CARE Additional Instructions: Please have close follow-up with your primary care doctor for wound reevaluation. The Steri-Strips/Dermabond should follow-up in a couple of days. Avoid getting this area wet peer return to the emergency department for increasing pain, redness or swelling to the site. INR today 2.57 Referrals: TERESA LOMBARDI MD [NO LOCAL MD] - Follow up as needed
[2020-01-03] MEDS ORDERED: TRANEXAMIC ACID INJ/PF 1,000 MG/10 ML SDV TOP ONE (21:54)
[2020-01-03 22:41] LABS: INTERNATIONAL RATION (INR) 2.57; PROTHROMBIN TIME 27.6 SEC (11.4-15.4)
[2020-01-03] MEDS ORDERED: SILVER NITRATE APPLICATOR 1 APPLIC STICK..EA. 10/PACKAGE TOP ONE (23:29)
[2020-01-03] MEDS ORDERED: LIDOCAINE 4%/TETRACAINE 0.5%/EPI 0.18% 5 ML TOPICAL SOLN TOP ONE (23:30)
[2020-01-04] MEDS ORDERED: OXYCODONE HCL IR 5 MG TABLET PO ONE (00:19)
[2020-01-04 02:18] VITALS: BP 164/100
== END 2020-01-04 02:50 | disposition home or self-care (01) ==
LOC: ER 21:23
DX: S61.206A Unspecified open wound of right little finger without damage to nail, initial encounter (principal); W26.8XXA Contact with other sharp object(s), not elsewhere classified, initial encounter; Y93.G9 Activity, other involving cooking and grilling; E11.9 Type 2 diabetes mellitus without complications; I25.2 Old myocardial infarction; Z79.01 Long term (current) use of anticoagulants; Z95.810 Presence of automatic (implantable) cardiac defibrillator
CPT/HCPCS: 99283; 36415; 85610; J3490 ×2; A9270